=== PATIENT | male | born 1965 | race Caucasian/White ===

== ENCOUNTER → 2024-10-15 | Outpatient (CLI) | payer BC, SELFPAY ==
[2024-10-15 08:04] LABS: Collection Type, Urine Clean Catch; Squamous Epithelial Cell,Urine 0 /hpf (0-5); WBC,Urine 0 /hpf (0-5)
[2024-10-15 08:37] LABS: Basophils # (Auto) 0.1 Thou/mm3 (0.0-0.2); Basophils % (Auto) 1 % (0-2.5); Eosinophils # (Auto) 0.1 Thou/mm3 (0.0-0.5); Eosinophils % (Auto) 2 % (0-10); Hematocrit 46.2 % (41.0-53.0); Hemoglobin 15.8 g/dL (13.5-16.0); Immature Granulocytes % (Auto) 0 % (0-0); Immature Granulocytes Auto 0.02 Thou/mm3 (0.00-0.00); Lymphocytes # (Auto) 1.6 Thou/mm3 (1.0-4.8); Lymphocytes % (Auto) 25 % (10-50); Mean Corpuscular HGB Conc 34.2 g/dl (31.0-37.0); Mean Corpuscular Volume 94 fL (80-100); Monocytes # (Auto) 0.6 Thou/mm3 (0.0-0.8); Monocytes % (Auto) 9 % (0-12); Neutrophils # (Auto) 4.1 Thou/mm3 (1.8-7.7); Neutrophils % (Auto) 63 % (37-80); Nucleated Red Blood Cell % 0 /100 WBC (0); Platelet Count 174 Thou/mm3 (140-440); RDW Standard Deviation 43.9 fL (35.1-43.9); Red Blood Count 4.94 Miln/mm3 (4.50-5.90); White Blood Count 6.5 Thou/mm3 (3.8-10.6)
[2024-10-15 08:53] LABS: Alanine Aminotransferase 27 U/L (10-49); Albumin, Serum 4.4 gm/dL (3.5-5.0); Alkaline Phosphatase 60 U/L (46-116); Anion Gap 6 (7-16); Aspartate Amino Transferase 20 U/L (0-34); BUN/Creatinine Ratio 11 Ratio (12-20); Bilirubin,Total 0.6 mg/dL (0.3-1.2); Blood Urea Nitrogen 13 mg/dL (9-23); Calcium 9.8 mg/dL (8.3-10.6); Calcium (Corrected) 9.8 mg/dL (8.5-10.1); Carbon Dioxide 28.6 mMol/L (20.0-31.0); Chloride 111 mMol/L (98-107); Cholesterol 165 mg/dL (132-200); Creatinine (Component) 1.2 mg/dL (0.6-1.3); Globulin 2.2 gm/dL (2.3-3.5); Glucose 114 mg/dL (74-106); HDL Cholesterol 41 mg/dL (40-60); LDL Cholesterol,Calculated 98 mg/dL (0-130); Osmolality,Calculated 291 (275-295); Sodium 146 mMol/L (136-145); Total Protein 6.6 gm/dL (5.7-8.2); Triglycerides 130 mg/dL (30-150); Uric Acid 5.1 mg/dL (3.7-9.2); eGFR > 60 See Note
[2024-10-15 08:57] LABS: Bilirubin,Urine Negative (Negative); Blood,Urine Negative (Negative); Clarity,Urine Clear (Clear/Hazy); Color,Urine Lt-Yellow (Lt Yel-Yel); Glucose, Urine Negative (Negative); Ketones,Urine Negative (Negative); Leukocyte Esterase,Urine Negative (Negative); Nitrite,Urine Negative (Negative); Protein,Urine Negative (Neg - Trace); RBC,Urine 1 /hpf (0-3); Urobilinogen,Urine Negative mg/dL (0.0-1.0)
== END | disposition home or self-care (01) ==
LOC: COPL 06:40
PROVIDERS: PCP Family Medicine; Referring Provider Family Medicine; Visit Provider Family Medicine
DX: Z00.00 Encounter for general adult medical examination without abnormal findings (principal); E78.2 Mixed hyperlipidemia; I10 Essential (primary) hypertension; E79.0 Hyperuricemia without signs of inflammatory arthritis and tophaceous disease
CPT/HCPCS: 36415; 80053; 80061; 81001; 84550; 85025

== ENCOUNTER → 2025-03-02 | Outpatient (CLI) | payer BC, SELFPAY ==
[2025-03-02 09:34] LABS: Prostate Specific Antigen 1.18 ng/mL (0-4.00)
[2025-03-02 09:50] LABS: Alanine Aminotransferase 23 U/L (10-49); Albumin, Serum 4.4 gm/dL (3.5-5.0); Albumin/Globulin Ratio 2.2 (1.2-2.2); Alkaline Phosphatase 65 U/L (46-116); Anion Gap 9 (7-16); Aspartate Amino Transferase 15 U/L (0-34); BUN/Creatinine Ratio 12 Ratio (12-20); Bilirubin,Total 0.7 mg/dL (0.3-1.2); Blood Urea Nitrogen 13 mg/dL (9-23); Calcium 9.6 mg/dL (8.3-10.6); Calcium (Corrected) 9.6 mg/dL (8.5-10.1); Carbon Dioxide 25.8 mMol/L (20.0-31.0); Cardiac Risk Estimate 4.1 RATIO (4.0-6.7); Chloride 107 mMol/L (98-107); Cholesterol 159 mg/dL (132-200); Creatinine (Component) 1.1 mg/dL (0.6-1.3); Globulin 2.0 gm/dL (2.3-3.5); Glucose 105 mg/dL (74-106); HDL Cholesterol 39 mg/dL (40-60); LDL Cholesterol,Calculated 79 mg/dL (0-130); Osmolality,Calculated 283 (275-295); Potassium 4.4 mMol/L (3.4-5.1); Sodium 142 mMol/L (136-145); Total Protein 6.4 gm/dL (5.7-8.2); Triglycerides 207 mg/dL (30-150); Uric Acid 5.7 mg/dL (3.7-9.2); eGFR > 60 See Note
== END | disposition home or self-care (01) ==
LOC: COPL 08:00
PROVIDERS: PCP Family Medicine; Referring Provider Family Medicine; Visit Provider Family Medicine
DX: N40.0 Benign prostatic hyperplasia without lower urinary tract symptoms (principal); E78.2 Mixed hyperlipidemia; I10 Essential (primary) hypertension; E79.0 Hyperuricemia without signs of inflammatory arthritis and tophaceous disease
CPT/HCPCS: 36415; 80053; 80061; 84153; 84550